=== PATIENT | female | born 1965 | race African-American/Black ===

== ENCOUNTER → 2017-01-02 | Outpatient (CLI) | payer MEDICARE, OTHER ==
[~2017-01-02] MED LIST: FLUT1SPR5 EACH NARE; INFL1INJ56 IM; LISI20TA PO; OMEP20TA PO; RANI150T PO
[2017-01-02 09:14] LABS: AUTOMATED NEUTROPHIL # 6.7 TH/MM3 (1.8-7.7); BASOPHIL # 0.1 TH/MM3 (0-0.2); BASOPHIL % 1.1 % (0.0-2.0); EOSINOPHIL # 0.2 TH/MM3 (0-0.4); EOSINOPHIL % 1.5 % (0.0-4.0); HEMATOCRIT 38.9 % (35.0-46.0); HEMO FLAGS DIFF FINAL; LYMPH % 26.3 % (9.0-44.0); LYMPHOCYTE # 2.8 TH/MM3 (1.0-4.8); MEAN CELL VOLUME 91.9 FL (80.0-100.0); MEAN CORPUSCULAR HEMOGLOBIN 30.4 PG (27.0-34.0); MEAN CORPUSCULAR HGB CONC 33.1 % (32.0-36.0); MONO % 7.3 % (0.0-8.0); NEUT % 63.8 % (16.0-70.0); PLATELET COUNT 214 TH/MM3 (150-450); RED BLOOD COUNT 4.23 MIL/MM3 (4.00-5.30); RED CELL DISTRIBUTION WIDTH 13.5 % (11.6-17.2); WHITE BLOOD COUNT 10.5 TH/MM3 (4.0-11.0)
[2017-01-02 09:33] LABS: ALKALINE PHOSPHATASE 97 U/L (45-117); ALT (GPT) 16 U/L (10-53); ANION GAP 7 MEQ/L (5-15); AST (GOT) 16 U/L (15-37); BICARBONATE 27.5 MEQ/L (21.0-32.0); BLOOD UREA NITROGEN 14 MG/DL (7-18); CHLORIDE 105 MEQ/L (98-107); GLOMERULAR FILTRATION RATE 76 ML/MIN (>89); GLUCOSE,FASTING 101 MG/DL (74-99); POTASSIUM 4.2 MEQ/L (3.5-5.1); SODIUM (NA) 139 MEQ/L (136-145); TOTAL BILIRUBIN ADULT 0.3 MG/DL (0.2-1.0)
== END ==
LOC: CLAB 08:48
PROVIDERS: ATTEND Family Medicine
DX: R10.9 Unspecified abdominal pain (principal); D25.9 Leiomyoma of uterus, unspecified; R10.13 Epigastric pain; R10.11 Right upper quadrant pain
CPT/HCPCS: 36415; 80053; 83690; 85025

== ENCOUNTER 2017-02-14 11:45 | Emergency (ER) | payer MEDICARE, OTHER ==
[~2017-02-14] VITALS: Ht 162.6 cm; Wt 110.0 kg
[~2017-02-14 11:45] MED LIST changes: -INFL1INJ56 IM
[2017-02-14 12:00] VITALS: BP 156/89; PULSE 59; RESP 18; TEMP 98.4; O2SAT 99
--- NOTE | 2017-02-14 12:01 | PD ---
HPI Chief Complaint: Syncope/Near-Syncope Time Seen by Provider: 11:58 Travel History International Travel<30 days: No Contact w/Intl Traveler<30days: No Traveled to known affect area: No History of Present Illness HPI 51-year-old female came to the emergency room with history of syncopal episode at her brother's . Patient is mute and her sisters are here with her. She is laying on the stretcher and flickering her eyes but when attempted to be open she squeezed them tight sharp. Her sisters a telling me that she probably got upset and emotional when her mother started to cry after viewing the body of her son. Vital signs are otherwise stable. Patient is has history of hypertension and is on one medication only. I'm unable to get any history out of patient given her mute condition. PFSH Past Medical History Narrative Medical List of her past medical, surgical, social and family history was reviewed from the nursing note. Cancer: No Cardiovascular Problems: No Diabetes: No Diminished Hearing: Yes (BIILAT) Glaucoma: No Hepatitis: No Hiatal Hernia: No Hypertension: No Respiratory: No Thyroid Disease: No Past Surgical History Abdominal Surgery: No Body Medical Devices: SINUS Cardiac Surgery: No Ear Surgery: No Endocrine Surgery: No Eye Surgery: No Genitourinary Surgery: No Gynecologic Surgery: Yes (LAPARASCOPIC FOUND FIBROID) Oral Surgery: No Pacemaker: No Thoracic Surgery: No Social History Alcohol Use: No Tobacco Use: No Allergies-Medications (Allergen,Severity, Reaction): Coded Allergies: No Known Allergies (Verified , 01/05/17) Comments No known drug allergies. Reported Meds & Prescriptions Reported Meds & Active Scripts Active Lisinopril-Hctz 20-12.5 Mg Tab 1 Tab PO DAILY Omeprazole 20 Mg Tab 20 Mg PO DAILY Ranitidine (Ranitidine HCl) 150 Mg Tab 150 Mg PO BID Flonase Nasal Milton (Fluticasone Nasal Milton) 50 Mcg/Act [place] 50 Mcg EACH NARE BID Narrative Medication List of her home medications reviewed from the nursing note. Review of Systems Except as stated in HPI: all other systems reviewed are Neg Physical Exam Narrative GENERAL: Eyes closed, obese, mute SKIN: Focused skin assessment warm/dry. HEAD: Atraumatic. Normocephalic. EYES: Pupils equal and round. No scleral icterus. No injection or drainage. ENT: No nasal bleeding or discharge. Mucous membranes pink and moist. NECK: Trachea midline. No JVD. CARDIOVASCULAR: Regular rate and rhythm. No murmur appreciated. RESPIRATORY: No accessory muscle use. Clear to auscultation. Breath sounds equal bilaterally. GASTROINTESTINAL: Abdomen soft, non-tender, nondistended. Hepatic and splenic margins not palpable. MUSCULOSKELETAL: No obvious deformities. No clubbing. No cyanosis. No edema. NEUROLOGICAL: Patient has her eyes closed and flickering. She squeezes her eyes tight shot when attempting to be opened. Patient is baseline deaf and speech impaired. PSYCHIATRIC: Unable to assess Data Data Last Documented VS Vital Signs Date Time Temp Pulse Resp B/P Pulse Ox O2 Delivery O2 Flow Rate FiO2 02/14/17 12:22 97 Nasal Cannula 2 02/14/17 12:03 59 18 02/14/17 12:00 98.4 156/89 Orders Electrocardiogram (02/14/17 ) Complete Blood Count With Diff (02/14/17 12:05) Basic Metabolic Panel (Bmp) (02/14/17 12:05) Troponin I (02/14/17 12:05) Ct Brain W/O Iv Contrast(Rout) (02/14/17 12:05) Ecg Monitoring (02/14/17 12:05) Iv Access Insert/Monitor (02/14/17 12:05) Oximetry (02/14/17 12:05) Sodium Chloride 0.9% Flush (Ns Flush) (02/14/17 12:15) Labs Laboratory Tests Test 02/14/17 13:00 White Blood Count 10.9 TH/MM3 Red Blood Count 4.13 MIL/MM3 Hemoglobin 12.4 GM/DL Hematocrit 38.7 % Mean Corpuscular Volume 93.6 FL Mean Corpuscular Hemoglobin 30.1 PG Mean Corpuscular Hemoglobin 32.1 % Concent Red Cell Distribution Width 13.7 % Platelet Count 206 TH/MM3 Mean Platelet Volume 12.2 FL Neutrophils (%) (Auto) 66.1 % Lymphocytes (%) (Auto) 24.6 % Monocytes (%) (Auto) 7.3 % Eosinophils (%) (Auto) 0.7 % Basophils (%) (Auto) 1.3 % Neutrophils # (Auto) 7.2 TH/MM3 Lymphocytes # (Auto) 2.7 TH/MM3 Monocytes # (Auto) 0.8 TH/MM3 Eosinophils # (Auto) 0.1 TH/MM3 Basophils # (Auto) 0.1 TH/MM3 CBC Comment DIFF FINAL Differential Comment Sodium Level 141 MEQ/L Potassium Level 4.0 MEQ/L Chloride Level 111 MEQ/L Carbon Dioxide Level 21.6 MEQ/L Anion Gap 8 MEQ/L Blood Urea Nitrogen 16 MG/DL Creatinine 0.74 MG/DL Estimat Glomerular Filtration 100 ML/MIN Rate Random Glucose 90 MG/DL Calcium Level 8.9 MG/DL Troponin I LESS THAN 0.02 NG/ML MDM Medical Decision Making Medical Screen Exam Complete: Yes Emergency Medical Condition: Yes Medical Record Reviewed: Yes Interpretation(s) Twelve-lead EKG was reviewed by me. Normal sinus rhythm, normal axis, diffuse T -wave inversion. Heart rate of 68 bpm. Differential Diagnosis Intracranial bleed, cardiac arrhythmia, psychosomatic Narrative Course 2:21 PM CAT scan was read as negative. However the radiologist called me to let me know that he could see a foreign body in her left nostril. I went and did a direct visualization and there was indeed a foreign body that could be seen in her left nostril against the middle turbinate. There was a foul smell coming out from that nostril as well. The foreign body was taken out by me. Please refer to my procedure note. Patient tolerated the procedure well. There was slight bleeding postprocedure from the nostril which has stopped after applying direct pressure. CBC and troponin are within normal limit. Awaiting for the rest of the chemistry. Her mother has showed up as well. If her chemistry is negative I will discharge her home. Procedures Procedure Narrative Foreign body removal from the nostril: Direct visualization with an otoscope was done into the left nostril with a black foreign body was noticed against the middle turbinate. It was attempted to be taken out with an ear curette followed by a steel round curette. After manipulating it for a few times eventually it came out. It was 1 cm x 1 cm cylindrical object. I have given it to the family. There was some postprocedure bleeding which was controlled by holding direct external pressure on the nose. Overall patient tolerated the procedure well. EKG Prior to Arrival: No Diagnosis Primary Impression: Syncope Qualified Code: R55 - Syncope, unspecified syncope type Additional Impressions: Psychosomatic disorder Foreign body in nose Qualified Code: T17.1XXA - Foreign body in nose, initial encounter Referrals: Primary Care Physician Additional Instructions: Please return to the ER if the condition worsens or any other new concerns. Follow-up with your primary care in couple days. Med/Other Pt SpecificInfo: No Change to Meds Disposition: 01 DISCHARGE HOME Condition: Stable Annette Lara MD Feb 14, 2017 12:01
[2017-02-14] MEDS ORDERED: SODIUM CHLORIDE 0.9% FLUSH 10 ML FLUSH IVF PRN (12:15)
[2017-02-14 12:22] VITALS: O2SAT 97
--- NOTE | 2017-02-14 12:50 | RADRPT ---
EXAM DATE/TIME: 02/14/2017 12:21 [facility] COMPARISON: No previous studies available for comparison. INDICATIONS : Syncopal episode. RADIATION DOSE: 56.35 CTDIvol (mGy) MEDICAL HISTORY : Hypertension. SURGICAL HISTORY : None. ENCOUNTER: Initial ACUITY: 1 day PAIN SCALE: 5/10 LOCATION: cranial TECHNIQUE: Multiple contiguous axial images were obtained of the head. Using automated exposure control and adj ustment of the mA and/or kV according to patient size, radiation dose was kept as low as reasonably a chievable to obtain optimal diagnostic quality images. FINDINGS: CEREBRUM: The ventricles are normal for age. No evidence of midline shift, mass lesion, hemorrhage or acute in farction. No extra-axial fluid collections are seen. POSTERIOR FOSSA: The cerebellum and brainstem are intact. The 4th ventricle is midline. The cerebellopontine angle i s unremarkable. EXTRACRANIAL: The visualized portion of the orbits is intact. Foreign body in the left nares. SKULL: The calvaria is intact. No evidence of skull fracture. CONCLUSION: Intracranial contents are negative. Radiopaque foreign body as described above. Junior Vanegas MD FACR on February 14, 2017 at 12:46 Board Certified Radiologist. This report was verified electronically.
[2017-02-14 13:56] LABS: AUTOMATED NEUTROPHIL # 7.2 TH/MM3 (1.8-7.7); BASOPHIL # 0.1 TH/MM3 (0-0.2); BASOPHIL % 1.3 % (0.0-2.0); EOSINOPHIL # 0.1 TH/MM3 (0-0.4); EOSINOPHIL % 0.7 % (0.0-4.0); HEMATOCRIT 38.7 % (35.0-46.0); HEMO FLAGS DIFF FINAL; LYMPH % 24.6 % (9.0-44.0); LYMPHOCYTE # 2.7 TH/MM3 (1.0-4.8); MEAN CELL VOLUME 93.6 FL (80.0-100.0); MEAN CORPUSCULAR HEMOGLOBIN 30.1 PG (27.0-34.0); MEAN CORPUSCULAR HGB CONC 32.1 % (32.0-36.0); MONO % 7.3 % (0.0-8.0); NEUT % 66.1 % (16.0-70.0); PLATELET COUNT 206 TH/MM3 (150-450); RED BLOOD COUNT 4.13 MIL/MM3 (4.00-5.30); RED CELL DISTRIBUTION WIDTH 13.7 % (11.6-17.2); WHITE BLOOD COUNT 10.9 TH/MM3 (4.0-11.0)
[2017-02-14 14:21] LABS: ANION GAP 8 MEQ/L (5-15); BICARBONATE 21.6 MEQ/L (21.0-32.0); BLOOD UREA NITROGEN 16 MG/DL (7-18); CHLORIDE 111 MEQ/L (98-107); GLOMERULAR FILTRATION RATE 100 ML/MIN (>89); SODIUM (NA) 141 MEQ/L (136-145)
--- NOTE | 2017-02-15 00:06 | EKG ---
Date Performed: 02/14/2017 Time Performed: 11:57:02 PTAGE: 51 years EKG: Sinus rhythm NORMAL ECG PREVIOUS TRACING : 12/06/2013 07.45 DOCTOR: Sotero Richards Interpretating Date/Time 02/15/2017 00:04:27
== END 2017-02-14 15:23 | disposition home or self-care (01) ==
LOC: NEPA 11:45
DX: R55 Syncope and collapse (principal); T17.1XXA Foreign body in nostril, initial encounter; I10 Essential (primary) hypertension; F45.9 Somatoform disorder, unspecified; X58.XXXA Exposure to other specified factors, initial encounter; Y93.9 Activity, unspecified; Y92.9 Unspecified place or not applicable; Y99.9 Unspecified external cause status
CPT/HCPCS: 30300; 70450; 80048; 84484; 85025; 93005

== ENCOUNTER → 2018-04-21 | Outpatient (CLI) | payer MEDICARE, OTHER ==
[~2018-04-21] MED LIST changes: -OMEP20TA PO; +OMEP20TA93 PO
[2018-04-21 09:16] LABS: AST (GOT) 17 U/L (15-37); BICARBONATE 24.9 MEQ/L (21.0-32.0); BLOOD UREA NITROGEN 17 MG/DL (7-18); CALCIUM 8.8 MG/DL (8.5-10.1); CHLORIDE 109 MEQ/L (98-107); CHOLESTEROL 133 MG/DL (120-200); CREATININE 0.92 MG/DL (0.50-1.00); GLOMERULAR FILTRATION RATE 78 ML/MIN (>89); GLUCOSE,FASTING 95 MG/DL (74-99); SODIUM (NA) 142 MEQ/L (136-145)
[2018-04-21 09:23] LABS: ALBUMIN 3.2 GM/DL (3.4-5.0); ALKALINE PHOSPHATASE 81 U/L (45-117); ALT (GPT) 14 U/L (10-53); HDL CHOLESTEROL 31.6 MG/DL (40.0-60.0); LDL CHOLESTEROL 79 MG/DL (0-99); TOTAL BILIRUBIN ADULT 0.3 MG/DL (0.2-1.0); TRIGLYCERIDES 110 MG/DL (42-150)
== END ==
LOC: CLAB 08:28
PROVIDERS: ATTEND Family Medicine
DX: I10 Essential (primary) hypertension (principal); E66.9 Obesity, unspecified
CPT/HCPCS: 36415; 80053; 80061